=== PATIENT | female | born 1995 | race Caucasian/White ===

== ENCOUNTER 2019-05-28 11:56 | Inpatient (IN) | payer OTHER ==
[~2019-05-28] VITALS: Ht 157.5 cm; Wt 71.7 kg
[2019-05-31] MEDS ORDERED: NAPR500T14 PO (06:47)
[2019-05-31] MEDS ORDERED: CODE1TAB37 PO (06:47)
[2019-05-31] MEDS ORDERED: DOCUSATE SODIU100 MG PO (06:48)
== END 2019-05-31 10:51 | disposition home or self-care (01) | DRG 788 ==
LOC: LDR 11:56 → OB/GYN 11:56
PROVIDERS: ADMIT Obstetrics & Gynecology
PROC: 3E033VJ Introduction of Other Hormone into Peripheral Vein, Percutaneous Approach (ICD-10-PCS; 2019-05-28)
PROC: 4A1HXCZ Monitoring of Products of Conception, Cardiac Rate, External Approach (ICD-10-PCS; 2019-05-28)
PROC: 10D00Z1 Extraction of Products of Conception, Low, Open Approach (ICD-10-PCS; principal; 2019-05-28 19:00)
DX: O82 Encounter for cesarean delivery without indication (principal); O61.0 Failed medical induction of labor; Z3A.38 38 weeks gestation of pregnancy; Z37.0 Single live birth